=== PATIENT | female | born 1945 | race Caucasian/White ===

== ENCOUNTER 2021-07-07 14:28 | Inpatient (IN) | payer BC ==
[~2021-07-07] VITALS: Ht 162.6 cm; Wt 82.2 kg
[2021-07-07 15:29] LABS: BASOPHILS # (AUTO) 0.1 X10'3 (0-0.2); BASOPHILS % (AUTO) 0.7 % (0-1); EOSINOPHILS # (AUTO) 0.2 X10'3 (0-0.9); EOSINOPHILS % (AUTO) 2.3 % (0-6); HEMATOCRIT 35.8 % (35.0-45.0); HEMOGLOBIN 11.7 g/dl (12.0-16.0); LYMPHOCYTES # (AUTO) 2.3 X10'3 (1.1-4.8); LYMPHOCYTES % (AUTO) 26.6 % (21-51); MEAN CORPUSCULAR HEMOGLOBIN 28.3 PG (27.0-31.0); MEAN CORPUSCULAR HGB CONC 32.8 g/dL (33.0-36.5); MEAN CORPUSCULAR VOLUME 86.3 FL (78-98); MEAN PLATELET VOLUME 7.6 FL (7.4-10.4); MONOCYTES # (AUTO) 1.1 X10'3 (0-0.9); MONOCYTES % (AUTO) 12.6 % (2-12); NEUTROPHILS # (AUTO) 4.9 X10'3 (1.8-7.7); NEUTROPHILS % (AUTO) 57.8 % (42-75); PLATELET COUNT 343 X10'3 (140-440); RED BLOOD COUNT 4.15 X10'6 (4.20-5.60); RED CELL DISTRIBUTION WIDTH 13.8 % (11.5-14.5); WHITE BLOOD COUNT 8.5 X10'3 (4.5-11.0)
[2021-07-07 15:38] LABS: CLARITY,URINE SLIGHTLY CLOUDY (Clear); COLOR,URINE STRAW (Yellow); GLUCOSE, URINE NEGATIVE (Neg); KETONES,URINE NEGATIVE (Neg); LEUKOCYTE ESTERASE ,URINE MODERATE (Neg); NITRITES, URINE NEGATIVE (Neg); OCCULT BLOOD,URINE TRACE-INTACT (Neg); PH,URINE 5.5 (4.8-8.0); PROTEIN,URINE NEGATIVE (Neg); UA COLLECTION TYPE NON-SPECIFIED; UROBILINOGEN,URINE 0.2 E.U/dL (0.2-1.0)
[2021-07-07 15:46] LABS: ALANINE AMINOTRANSFERASE 44 U/L (12-78); ALBUMIN 3.8 G/DL (3.4-5.0); ALBUMIN/GLOBULIN RATIO 0.9 (1.1-1.5); ALKALINE PHOSPHATASE 101 IU/L (46-116); ANION GAP 11 (8-16); ASPARTATE AMINO TRANSFERASE 25 U/L (10-37); BILIRUBIN,TOTAL 0.3 MG/DL (0.1-1.0); BLOOD UREA NITROGEN 16 MG/DL (7-18); BUN/CREATININE RATIO 22.9 (6.6-38.0); CALCIUM 9.3 MG/DL (8.5-10.1); CHLORIDE 107 MMOL/L (99-107); GLUCOSE 91 MG/DL (70-104); POTASSIUM 4.1 MMOL/L (3.5-5.1); SODIUM 141 MMOL/L (135-145); TOTAL CARBON DIOXIDE 22.6 MMOL/L (24-32); TOTAL PROTEIN 8.1 G/DL (6.4-8.2); eGFR 81 ML/MIN
[2021-07-07 15:58] LABS: MUCUS STRANDS FEW /LPF (Neg); SQUAMOUS EPITHELIAL CELL,UR MODERATE /LPF (FEW); TRANSITIONAL EPI CELLS,URINE MODERATE /HPF
[2021-07-07] MEDS ORDERED: vancomycin/NS 1 GM ADD-VANTAGE 250 ML IV ONE (16:10)
[2021-07-07] MEDS ORDERED: piperacillin/tazo 3.375gm/50ml 50 ML IV ONE (16:10)
[2021-07-07 16:12] LABS: WBC CLUMPS,URINE MODERATE /HPF (NEGATIVE)
[2021-07-07 16:17] LABS: BACTERIA,URINE FEW /HPF (Neg)
[2021-07-07 16:18] LABS: RBC,URINE 0-2 /HPF (0-2); WBC,URINE 50-100 /HPF (0-4)
--- NOTE | 2021-07-07 16:39 | NUR ---
Wound to L upper chest was cleaned and dressed with 4x4s and transfoam tape. Wound drained copious purulent yellow/head/red fluid. Pt tolerated procedure.
--- NOTE | 2021-07-07 17:45 | NUR ---
RN CALLED INTO ROOM BY PT WHEN PASSING BY PT REPORTS INCHING ALL OVER AND FEELING LIKE FACE IS PUFFY. RN INFORMED PROVIDER ORDERS FOR IV BENADRYL GIVEN
[2021-07-07] MEDS ORDERED: diphenhydrAMINE 50 mg/ml inj IV ONE (17:55)
[2021-07-07] MEDS ORDERED: famotidine/PF 10 mg/ml inj IV ONE (18:00)
[2021-07-07] MEDS ORDERED: methylPREDNISolone sod succ 125mg/2ml vial IV ONE (18:00)
[2021-07-07] MEDS ORDERED: potassium CL 10mEq/100ml bag 100 ML IV PRN (18:05)
[2021-07-07] MEDS ORDERED: naloxone 0.4 mg/ml inj IV PRN (18:05)
[2021-07-07] MEDS ORDERED: ondansetron/PF 4mg/2ml inj IV PRN (18:05)
[2021-07-07] MEDS ORDERED: magnesium 4gm in 100ml NS 100 ML IV PRN (18:05)
[2021-07-07] MEDS ORDERED: magnesium 2GM in 50ml NS 50 ML IV PRN (18:05)
[2021-07-07] MEDS ORDERED: magnesium Cl slow-release 64mg tablet PO PRN (18:05)
[2021-07-07] MEDS ORDERED: potassium Cl 20 mEq SR tablet PO PRN ×2 (18:05)
[2021-07-07 18:58] LABS: MAGNESIUM 2.1 MG/DL (1.5-2.4); POTASSIUM 3.8 MMOL/L (3.5-5.1)
[2021-07-07] MEDS: K and/or MAG REPLACEMENT MC SCH (19:12)
[2021-07-07] MEDS: docusate sod 100mg capsule PO SCH (20:05)
[2021-07-07] MEDS ORDERED: HYDR12.55 PO (21:12)
[2021-07-07] MEDS ORDERED: APIX5TAB3 PO (21:12)
[2021-07-07] MEDS ORDERED: ATOR40TA72 PO (21:12)
[2021-07-07] MEDS ORDERED: ASPI-1475 PO (21:12)
[2021-07-07] MEDS ORDERED: NITR0.4T48 SL (21:12)
[2021-07-07] MEDS ORDERED: METO-395 PO (21:12)
[2021-07-07] MEDS ORDERED: ESCI-8 PO (21:12)
[2021-07-07] MEDS ORDERED: AMLO5TAB16 PO (21:12)
[2021-07-07] MEDS ORDERED: IRBE150T24 PO (21:12)
[2021-07-07] MEDS ORDERED: CLOP75TA34 PO (21:12)
[2021-07-07] MEDS ORDERED: METF-1203 PO (21:12)
[2021-07-07] MEDS ORDERED: AMIO200T61 PO (21:12)
[2021-07-07] MEDS ORDERED: SPIR25TA5 PO (21:12)
--- NOTE | 2021-07-07 21:15 | NUR ---
Received report from Krishna SMITH from ED. Patient able to walk to bed stand by, Bed placed in locked and low position, call light placed within reach.
[2021-07-07 21:26] VITALS: BP 125/70
[2021-07-07 22:00] VITALS: BP 127/65
[2021-07-07 22:05] LABS: HEMOGLOBIN A1C 5.8 % (4.5-6.2)
[2021-07-08 02:00] VITALS: BP 131/78
[2021-07-08] MEDS: acetaminophen 325mg tablet PO PRN ×2 (03:03→17:04)
[2021-07-08 05:47] LABS: BASOPHILS % (AUTO) 0.2 % (0-1); EOSINOPHILS % (AUTO) 0 % (0-6); HEMATOCRIT 35.2 % (35.0-45.0); HEMOGLOBIN 11.9 g/dl (12.0-16.0); LYMPHOCYTES # (AUTO) 0.9 X10'3 (1.1-4.8); LYMPHOCYTES % (AUTO) 13.8 % (21-51); MEAN CORPUSCULAR HEMOGLOBIN 29.3 PG (27.0-31.0); MEAN CORPUSCULAR HGB CONC 33.9 g/dL (33.0-36.5); MEAN CORPUSCULAR VOLUME 86.4 FL (78-98); MEAN PLATELET VOLUME 7.5 FL (7.4-10.4); MONOCYTES # (AUTO) 0.2 X10'3 (0-0.9); MONOCYTES % (AUTO) 2.5 % (2-12); NEUTROPHILS # (AUTO) 5.4 X10'3 (1.8-7.7); NEUTROPHILS % (AUTO) 83.5 % (42-75); PLATELET COUNT 344 X10'3 (140-440); RED BLOOD COUNT 4.08 X10'6 (4.20-5.60); RED CELL DISTRIBUTION WIDTH 13.9 % (11.5-14.5); WHITE BLOOD COUNT 6.5 X10'3 (4.5-11.0)
[2021-07-08 06:01] LABS: ALBUMIN 3.5 G/DL (3.4-5.0); ANION GAP 10 (8-16); BLOOD UREA NITROGEN 17 MG/DL (7-18); BUN/CREATININE RATIO 20.2 (6.6-38.0); CALCIUM 9.4 MG/DL (8.5-10.1); CHLORIDE 107 MMOL/L (99-107); CREATININE 0.84 MG/DL (0.40-0.90); GLUCOSE 170 MG/DL (70-104); POTASSIUM 4.4 MMOL/L (3.5-5.1); SODIUM 140 MMOL/L (135-145); TOTAL CARBON DIOXIDE 22.8 MMOL/L (24-32); eGFR 66 ML/MIN
[2021-07-08 07:00] VITALS: BP 114/66
--- NOTE | 2021-07-08 07:11 | NUR ---
Patient in room PCU 3024. I have received report from Damir and had the opportunity to ask questions and assume patient care.
[2021-07-08] MEDS: K and/or MAG REPLACEMENT MC SCH ×2 (07:46→20:00)
[2021-07-08] MEDS ORDERED: cefTRIAXone 1g/NS 100ml IVPB 100 ML IV SCH (08:00)
[2021-07-08] MEDS: docusate sod 100mg capsule PO SCH ×2 (08:02→20:48)
[2021-07-08] MEDS ORDERED: nitroGLYCERIN 0.4mg SUBLingual tab SL PRN (09:20)
[2021-07-08 11:00] VITALS: BP 139/59
--- NOTE | 2021-07-08 12:27 | NUR ---
DM Consult: Pt hx T2DM A1C 5.8% currently on carb controlled/heart healthy diet per EMR. DM ed not appropriate at this time given A1C; SANDY d/w RN regarding cancelling carb controlled diet if physician agreeable given A1C. Glu 140-170mg/dl past two checks however s/p Solumedrol dose last night per EMR. Addendum: 07/08/21 at [address] Amended: Links added.
[2021-07-08] MEDS: clopidogrel 75mg tablet PO SCH (13:28)
--- NOTE | 2021-07-08 14:33 | NUR ---
PRESSURE ULCER EDUCATION: DEFINITION: A pressure ulcer is an area of skin that breaks down when you stay in one position too long. The constant pressure against the skin reduces the blood flow to that area and the affected tissue dies. CAUSES: "Being bedridden or in a wheelchair "Fragile skin "Having a chronic condition, such as diabetes or vascular disease "Inability to move certain parts of your body without assistance "Older age "Incontinence of urine or stool SYMPTOMS: "A reddened area that DOES NOT turn white when pressed on - this can be the beginning of a pressure ulcer "A blister, deep sore or a crater - these can be advanced pressure ulcers FIRST AID: "Relieve the pressure on this area "Keep the area clean and dry "Call your primary doctor if you see any of the above symptoms "DO NOT massage the area "DO NOT use a donut shaped or ring shaped pillow- these actually interfere with the blood flow and cause complications PREVENTION: "Check for pressure ulcers everyday "Change position at least every two hours to relieve pressure "Use items that help relieve pressure- pillows, sheepskin, foam padding, and powders. "Keep skin clean and dry "Eat healthy well balanced meals "Exercise daily IF YOU SEE ANY OF THESE SYMPTOMS WHILE IN THE HOSPITAL - TELL YOUR NURSE IMMEDIATELY. IF YOU SEE ANY OF THESE SYMPTOMS WHILE AT HOME OR HAVE ANY QUESTIONS OR CONCERNS ABOUT PRESSURE ULCERS - CALL YOUR PRIMARY DOCTOR IMMEDIATELY. Addendum: 07/08/21 at 1433 by Stacey Cruz RN Amended: Links added.
[2021-07-08 15:00] VITALS: BP 127/59
[2021-07-08] MEDS: piperacillin/tazo 4.5gm/100ml 100 ML IV SCH (16:53)
--- NOTE | 2021-07-08 18:30 | NUR ---
Problems reprioritized. Patient report given, questions answered & plan of care reviewed with Zulema.
--- NOTE | 2021-07-08 18:53 | NUR ---
Patient in room PCU 3024. I have received report from Ashvin SMITH and had the opportunity to ask questions and assume patient care.
[2021-07-08] MEDS: losartan 50mg tablet PO SCH (20:53)
[2021-07-08] MEDS: amLODIPine 5mg tablet PO SCH (20:53)
[2021-07-08 22:00] VITALS: BP 128/68
[2021-07-09] MEDS: piperacillin/tazo 4.5gm/100ml 100 ML IV SCH ×3 (00:09→16:46)
[2021-07-09 02:00] VITALS: BP 123/68
--- NOTE | 2021-07-09 06:43 | NUR ---
Problems reprioritized. Patient report given, questions answered & plan of care reviewed with Ashvin SMITH.
[2021-07-09 06:58] LABS: ALBUMIN 3.5 G/DL (3.4-5.0); ANION GAP 12 (8-16); BLOOD UREA NITROGEN 19 MG/DL (7-18); BUN/CREATININE RATIO 18.8 (6.6-38.0); CALCIUM 9.2 MG/DL (8.5-10.1); CHLORIDE 108 MMOL/L (99-107); CREATININE 1.01 MG/DL (0.40-0.90); GLUCOSE 111 MG/DL (70-104); MAGNESIUM 2.2 MG/DL (1.5-2.4); SODIUM 144 MMOL/L (135-145); eGFR 53 ML/MIN
[2021-07-09 07:00] VITALS: BP 131/66
[2021-07-09 07:03] LABS: BASOPHILS # (AUTO) 0.1 X10'3 (0-0.2); BASOPHILS % (AUTO) 0.7 % (0-1); EOSINOPHILS # (AUTO) 0.1 X10'3 (0-0.9); EOSINOPHILS % (AUTO) 1.2 % (0-6); HEMATOCRIT 35.6 % (35.0-45.0); HEMOGLOBIN 11.9 g/dl (12.0-16.0); LYMPHOCYTES # (AUTO) 2.6 X10'3 (1.1-4.8); LYMPHOCYTES % (AUTO) 28.4 % (21-51); MEAN CORPUSCULAR HEMOGLOBIN 29.2 PG (27.0-31.0); MEAN CORPUSCULAR HGB CONC 33.5 g/dL (33.0-36.5); MEAN CORPUSCULAR VOLUME 87.1 FL (78-98); MEAN PLATELET VOLUME 7.4 FL (7.4-10.4); MONOCYTES # (AUTO) 0.9 X10'3 (0-0.9); MONOCYTES % (AUTO) 10.2 % (2-12); NEUTROPHILS # (AUTO) 5.5 X10'3 (1.8-7.7); NEUTROPHILS % (AUTO) 59.5 % (42-75); PLATELET COUNT 388 X10'3 (140-440); RED BLOOD COUNT 4.09 X10'6 (4.20-5.60); RED CELL DISTRIBUTION WIDTH 14.1 % (11.5-14.5); WHITE BLOOD COUNT 9.3 X10'3 (4.5-11.0)
[2021-07-09] MEDS: K and/or MAG REPLACEMENT MC SCH ×2 (07:03→19:12)
--- NOTE | 2021-07-09 07:18 | NUR ---
Patient in room PCU 3016. I have received report from Josseline and had the opportunity to ask questions and assume patient care
[2021-07-09] MEDS: losartan 50mg tablet PO SCH ×2 (08:00→21:54)
[2021-07-09] MEDS: HYDROchlorothiazide 12.5mg capsule PO SCH (08:55)
[2021-07-09] MEDS: metoprolol succinate 25mg (24-HOUR) SR. Tablet PO SCH (08:55)
[2021-07-09] MEDS: amLODIPine 5mg tablet PO SCH ×2 (08:55→21:53)
[2021-07-09] MEDS: amiodarone 200mg tablet PO SCH (08:55)
[2021-07-09] MEDS: atorvastatin 20mg tablet PO SCH (08:56)
[2021-07-09] MEDS: ESCITALOPRAM OXALATE 5 MG TABLET PO SCH (08:56)
[2021-07-09] MEDS: spironolactone 25 MG tablet PO SCH (08:56)
[2021-07-09] MEDS: docusate sod 100mg capsule PO SCH ×2 (08:56→21:52)
[2021-07-09] MEDS: clopidogrel 75mg tablet PO SCH (08:56)
[2021-07-09] MEDS: aspirin 81mg, enteric-coated 1 TAB TABLET.DR PO SCH (08:56)
[2021-07-09] MEDS ORDERED: ondansetron 4mg rapidly disintigrating tab PO PRN (10:55)
[2021-07-09 11:00] VITALS: BP 130/71
--- NOTE | 2021-07-09 18:24 | NUR ---
Problems reprioritized. Patient report given, questions answered & plan of care reviewed with
--- NOTE | 2021-07-09 18:26 | NUR ---
Patient in room PCU 3016. I have received report from Ashvin and had the opportunity to ask questions and assume patient care.
[2021-07-10] MEDS: piperacillin/tazo 4.5gm/100ml 100 ML IV SCH ×3 (00:04→16:35)
[2021-07-10] MEDS: acetaminophen 325mg tablet PO PRN ×2 (05:21→15:11)
[2021-07-10 06:00] VITALS: BP 100/73
[2021-07-10 07:20] LABS: BASOPHILS # (AUTO) 0.1 X10'3 (0-0.2); EOSINOPHILS # (AUTO) 0.3 X10'3 (0-0.9); EOSINOPHILS % (AUTO) 3.3 % (0-6); HEMATOCRIT 37.8 % (35.0-45.0); HEMOGLOBIN 12.7 g/dl (12.0-16.0); LYMPHOCYTES # (AUTO) 2.1 X10'3 (1.1-4.8); LYMPHOCYTES % (AUTO) 26.8 % (21-51); MEAN CORPUSCULAR HEMOGLOBIN 29.1 PG (27.0-31.0); MEAN CORPUSCULAR HGB CONC 33.6 g/dL (33.0-36.5); MEAN CORPUSCULAR VOLUME 86.6 FL (78-98); MEAN PLATELET VOLUME 7.3 FL (7.4-10.4); MONOCYTES % (AUTO) 12.6 % (2-12); NEUTROPHILS # (AUTO) 4.4 X10'3 (1.8-7.7); NEUTROPHILS % (AUTO) 56.3 % (42-75); PLATELET COUNT 405 X10'3 (140-440); RED BLOOD COUNT 4.37 X10'6 (4.20-5.60); WHITE BLOOD COUNT 7.8 X10'3 (4.5-11.0)
[2021-07-10] MEDS: ESCITALOPRAM OXALATE 5 MG TABLET PO SCH (07:46)
[2021-07-10] MEDS: amiodarone 200mg tablet PO SCH (07:47)
[2021-07-10] MEDS: losartan 50mg tablet PO SCH ×2 (07:47→22:10)
[2021-07-10] MEDS: docusate sod 100mg capsule PO SCH ×2 (07:47→22:10)
[2021-07-10] MEDS: atorvastatin 20mg tablet PO SCH (07:47)
[2021-07-10] MEDS: aspirin 81mg, enteric-coated 1 TAB TABLET.DR PO SCH (07:47)
[2021-07-10] MEDS: clopidogrel 75mg tablet PO SCH (07:47)
[2021-07-10 07:48] LABS: ALBUMIN 3.6 G/DL (3.4-5.0); ANION GAP 10 (8-16); BLOOD UREA NITROGEN 19 MG/DL (7-18); BUN/CREATININE RATIO 17.9 (6.6-38.0); CALCIUM 9.5 MG/DL (8.5-10.1); CHLORIDE 105 MMOL/L (99-107); CREATININE 1.06 MG/DL (0.40-0.90); GLUCOSE 106 MG/DL (70-104); POTASSIUM 3.9 MMOL/L (3.5-5.1); SODIUM 140 MMOL/L (135-145); TOTAL CARBON DIOXIDE 25.1 MMOL/L (24-32); eGFR 50 ML/MIN
[2021-07-10] MEDS: metoprolol succinate 25mg (24-HOUR) SR. Tablet PO SCH (07:56)
[2021-07-10] MEDS: HYDROchlorothiazide 12.5mg capsule PO SCH (07:56)
[2021-07-10] MEDS: amLODIPine 5mg tablet PO SCH ×2 (07:56→22:10)
[2021-07-10] MEDS: spironolactone 25 MG tablet PO SCH (07:56)
[2021-07-10] MEDS: K and/or MAG REPLACEMENT MC SCH ×2 (08:00→20:00)
[2021-07-10 11:00] VITALS: BP 102/74
[2021-07-10 15:00] VITALS: BP 154/64
[2021-07-10 18:00] VITALS: BP 113/79
--- NOTE | 2021-07-10 18:27 | NUR ---
Problems reprioritized. Patient report given, questions answered & plan of care reviewed with rKisten SMITH.
[2021-07-10 22:00] VITALS: BP 114/70
[2021-07-11] MEDS: piperacillin/tazo 4.5gm/100ml 100 ML IV SCH ×2 (00:34→08:00)
[2021-07-11 02:00] VITALS: BP 168/61
[2021-07-11] MEDS: acetaminophen 325mg tablet PO PRN (04:11)
[2021-07-11 06:00] VITALS: BP 131/77
[2021-07-11 06:32] LABS: BASOPHILS # (AUTO) 0.1 X10'3 (0-0.2); BASOPHILS % (AUTO) 0.9 % (0-1); EOSINOPHILS # (AUTO) 0.2 X10'3 (0-0.9); EOSINOPHILS % (AUTO) 3.3 % (0-6); HEMOGLOBIN 12.2 g/dl (12.0-16.0); LYMPHOCYTES # (AUTO) 2.1 X10'3 (1.1-4.8); MEAN CORPUSCULAR HEMOGLOBIN 28.5 PG (27.0-31.0); MEAN CORPUSCULAR HGB CONC 32.9 g/dL (33.0-36.5); MEAN CORPUSCULAR VOLUME 86.4 FL (78-98); MEAN PLATELET VOLUME 7.3 FL (7.4-10.4); MONOCYTES # (AUTO) 0.9 X10'3 (0-0.9); MONOCYTES % (AUTO) 12.5 % (2-12); NEUTROPHILS % (AUTO) 54.3 % (42-75); PLATELET COUNT 390 X10'3 (140-440); RED BLOOD COUNT 4.28 X10'6 (4.20-5.60); RED CELL DISTRIBUTION WIDTH 13.6 % (11.5-14.5); WHITE BLOOD COUNT 7.3 X10'3 (4.5-11.0)
[2021-07-11 06:56] LABS: ALBUMIN 3.5 G/DL (3.4-5.0); ANION GAP 9 (8-16); BLOOD UREA NITROGEN 16 MG/DL (7-18); BUN/CREATININE RATIO 15.2 (6.6-38.0); CALCIUM 9.3 MG/DL (8.5-10.1); CHLORIDE 105 MMOL/L (99-107); CREATININE 1.05 MG/DL (0.40-0.90); GLUCOSE 115 MG/DL (70-104); POTASSIUM 3.7 MMOL/L (3.5-5.1); SODIUM 140 MMOL/L (135-145); TOTAL CARBON DIOXIDE 25.6 MMOL/L (24-32); eGFR 51 ML/MIN
[2021-07-11 07:29] LABS: MAGNESIUM 2.1 MG/DL (1.5-2.4)
[2021-07-11] MEDS: K and/or MAG REPLACEMENT MC SCH (08:00)
[2021-07-11] MEDS: amiodarone 200mg tablet PO SCH (08:00)
[2021-07-11] MEDS: docusate sod 100mg capsule PO SCH (08:00)
[2021-07-11] MEDS: metoprolol succinate 25mg (24-HOUR) SR. Tablet PO SCH (08:00)
[2021-07-11] MEDS: aspirin 81mg, enteric-coated 1 TAB TABLET.DR PO SCH (08:00)
[2021-07-11] MEDS: HYDROchlorothiazide 12.5mg capsule PO SCH (08:00)
[2021-07-11] MEDS: atorvastatin 20mg tablet PO SCH (08:00)
[2021-07-11] MEDS: amLODIPine 5mg tablet PO SCH (08:00)
[2021-07-11] MEDS: spironolactone 25 MG tablet PO SCH (08:00)
[2021-07-11] MEDS: losartan 50mg tablet PO SCH (08:00)
[2021-07-11] MEDS: clopidogrel 75mg tablet PO SCH (08:00)
[2021-07-11] MEDS: ESCITALOPRAM OXALATE 5 MG TABLET PO SCH (08:00)
[2021-07-11] MEDS ORDERED: cephalexin 250mg capsule PO SCH (10:15)
[2021-07-11 11:00] VITALS: BP 127/65
[2021-07-11] MEDS ORDERED: CEPH500C2 PO (12:01)
[2021-07-11] MEDS ORDERED: MUPI22OI30 TOP (12:01)
--- NOTE | 2021-07-11 12:26 | NUR ---
Discharge instructions discussed with patient. All questions answered. Pt states she understands all instructions. Pt's ride will be here around 1400. Will continue to monitor.
== END 2021-07-11 14:23 | disposition home or self-care (01) | DRG 315 ==
LOC: ER 14:29 → ED HOLD 18:01 → UNDOADMIN 18:01 → ED HOLD 18:07 → PCU 3S 21:13
PROVIDERS: ADMIT Internal Medicine; ATTEND Family Medicine
DX: T82.7XXA Infection and inflammatory reaction due to other cardiac and vascular devices, implants and grafts, initial encounter (principal); N39.0 Urinary tract infection, site not specified; I45.3 Trifascicular block; L03.313 Cellulitis of chest wall; I48.0 Paroxysmal atrial fibrillation; I25.10 Atherosclerotic heart disease of native coronary artery without angina pectoris; B96.5 Pseudomonas (aeruginosa) (mallei) (pseudomallei) as the cause of diseases classified elsewhere; E11.9 Type 2 diabetes mellitus without complications; E78.5 Hyperlipidemia, unspecified; I11.0 Hypertensive heart disease with heart failure; I50.9 Heart failure, unspecified; M19.90 Unspecified osteoarthritis, unspecified site; Z20.822 Contact with and (suspected) exposure to COVID-19; Z96.652 Presence of left artificial knee joint; B95.61 Methicillin susceptible Staphylococcus aureus infection as the cause of diseases classified elsewhere; F32.A Depression, unspecified; Y83.1 Surgical operation with implant of artificial internal device as the cause of abnormal reaction of the patient, or of later complication, without mention of misadventure at the time of the procedure; Z79.84 Long term (current) use of oral hypoglycemic drugs; Z79.899 Other long term (current) drug therapy; Z90.710 Acquired absence of both cervix and uterus; Z79.01 Long term (current) use of anticoagulants; Z95.0 Presence of cardiac pacemaker; Z95.5 Presence of coronary angioplasty implant and graft; Y92.89 Other specified places as the place of occurrence of the external cause; Z88.2 Allergy status to sulfonamides; Z88.8 Allergy status to other drugs, medicaments and biological substances; Z90.49 Acquired absence of other specified parts of digestive tract; Z98.42 Cataract extraction status, left eye; Z98.41 Cataract extraction status, right eye; Z79.82 Long term (current) use of aspirin
CPT/HCPCS: 36415; 71045; 80048; 80053; 81001; 82948; 83036; 83605; 83735; 84132; 84145; 84484; 85025; 87040; 87070; 87077; 87081; 87088; 87186; 87635; 99285; C9803; G0378; J0696; J1200; J2543; J2930; J3370; J3490